=== PATIENT | female | born 1975 | race Two or more races ===

== ENCOUNTER 2020-02-26 21:01 | Emergency (ER) | payer MEDICAID ==
[~2020-02-26] VITALS: Ht 162.6 cm; Wt 73.6 kg
[~2020-02-26 21:01] MED LIST: CLON-529 PO; HCTZ25T PO; NORCO10T PO; VAL5T PO; normal saline 50 ML solution ONE; sod chloride 0.9% 10ml flush syringe IV ONE
[2020-02-26] MEDS ORDERED: iohexol 350MG/ML 100ml bottle IV ONE (21:05)
[2020-02-26] MEDS ORDERED: LIDOcaine 2% 10ml TOPICAL JELLY (Urojet) TP ONE (21:10)
[2020-02-26] MEDS ORDERED: aspirin 300mg supp.rect RC STA (21:30)
[2020-02-26] MEDS ORDERED: labetalol 20mg/4ml (5mg/ml) syringe IV ONE (21:30)
[2020-02-26] MEDS ORDERED: niCARDipine-NS 40mg/200ml IVPB 200 ML IV SCH (21:30)
--- NOTE | 2020-02-26 21:31 | NUR ---
teleneuro consult right now in room
[2020-02-26 21:35] LABS: BASOPHILS % (AUTO) 0.4 % (0-1); EOSINOPHILS # (AUTO) 0.1 X10'3 (0-0.9); EOSINOPHILS % (AUTO) 0.8 % (0-6); HEMATOCRIT 39.9 % (35.0-45.0); HEMOGLOBIN 13.1 g/dl (12.0-16.0); LYMPHOCYTES # (AUTO) 2.1 X10'3 (1.1-4.8); LYMPHOCYTES % (AUTO) 24.2 % (21-51); MEAN CORPUSCULAR HEMOGLOBIN 30.8 PG (27.0-31.0); MEAN CORPUSCULAR HGB CONC 32.8 g/dL (33.0-36.5); MEAN CORPUSCULAR VOLUME 93.9 FL (78-98); MEAN PLATELET VOLUME 8.6 FL (7.4-10.4); MONOCYTES # (AUTO) 0.7 X10'3 (0-0.9); MONOCYTES % (AUTO) 7.4 % (2-12); NEUTROPHILS # (AUTO) 5.9 X10'3 (1.8-7.7); NEUTROPHILS % (AUTO) 67.2 % (42-75); PLATELET COUNT 202 X10'3 (140-440); RED BLOOD COUNT 4.24 X10'6 (4.20-5.60); RED CELL DISTRIBUTION WIDTH 15.5 % (11.5-14.5); WHITE BLOOD COUNT 8.8 X10'3 (4.5-11.0)
--- NOTE | 2020-02-26 21:37 | NUR ---
STROKE RN, GRIFFIN AT BEDSIDE. TELE NEURO JUST COMPLETED WITH DR. KENT AND JANET MOYA. AND TPA TO BE GIVEN AND [facility].
--- NOTE | 2020-02-26 21:39 | NUR ---
TPA 6.6 MG BOLUS JUST ADMINISTERED.
[2020-02-26] MEDS ORDERED: alteplase 100MG inj. 100 ML IV ONE (21:45)
[2020-02-26] MEDS: normal saline 50ml IV soln 50 ML IV SCH ×2 (21:48→22:29)
[2020-02-26 21:50] LABS: ALANINE AMINOTRANSFERASE 19 U/L (12-78); ALBUMIN 2.6 G/DL (3.4-5.0); ALBUMIN/GLOBULIN RATIO 0.7 (1.1-1.5); ALKALINE PHOSPHATASE 105 IU/L (46-116); ANION GAP 6 (8-16); ASPARTATE AMINO TRANSFERASE 29 U/L (10-37); BILIRUBIN,TOTAL 0.3 MG/DL (0.1-1.0); BLOOD UREA NITROGEN 25 MG/DL (7-18); BUN/CREATININE RATIO 25.8 (6.6-38.0); CALCIUM 8.1 MG/DL (8.5-10.1); CHLORIDE 107 MMOL/L (99-107); CREATININE 0.97 MG/DL (0.40-0.90); GLUCOSE 126 MG/DL (70-104); PARTIAL THROMBOPLASTIN TIME 26 SECONDS (22-32); POTASSIUM 3.7 MMOL/L (3.5-5.1); SODIUM 137 MMOL/L (135-145); TOTAL PROTEIN 6.2 G/DL (6.4-8.2); eGFR 62 ML/MIN
--- NOTE | 2020-02-26 21:50 | NUR ---
CONTACT INF: GEETA RENE CELL# [phone]. THIS IS SISTER AND SHE WAS WITH THE PATIENT WHEN SYMPTOMS BEGAN.
[2020-02-26 21:54] LABS: ETHANOL < 0.010 GM/DL (0.0-0.010); TROPONIN I 0.05 NG/ML (0.0-0.05)
--- NOTE | 2020-02-26 22:02 | NUR ---
PT ACCEPTED AND READY TO TRANSFER TO [facility]. DR. TERRY REPORTS THAT TRANSFER CANCELLED BY [facility] TRANSFER [facility] AND NOW HE IS TRYING TO PLACE PT AT [facility]. STROKE RN REMAINS AT BEDSIDE.
[2020-02-26] MEDS ORDERED: LISI-600 PO (22:06)
[2020-02-26] MEDS ORDERED: ASPI-1130 PO (22:07)
[2020-02-26] MEDS ORDERED: CHOL2000 PO (22:07)
--- NOTE | 2020-02-26 22:31 | NUR ---
NO REACCEPTED TO [facility] FOR TRANSFER. CODE 3 UNIT IN TRANSIT NOW FOR TRANSFER. STROKE RN , GRIFFIN , REMAINS AT BEDSIDE. PT CONTIIUES TO BE STABLE. TPA ALMOST INFUSED.
[2020-02-26 22:40] VITALS: BP 161/109
== END 2020-02-26 22:47 | disposition short-term general hospital (02) ==
LOC: ER 21:01
DX: I63.9 Cerebral infarction, unspecified (principal); I66.02 Occlusion and stenosis of left middle cerebral artery; I16.1 Hypertensive emergency; I10 Essential (primary) hypertension; G89.29 Other chronic pain; F41.9 Anxiety disorder, unspecified; F15.90 Other stimulant use, unspecified, uncomplicated; Z90.49 Acquired absence of other specified parts of digestive tract; Z86.69 Personal history of other diseases of the nervous system and sense organs; Z87.59 Personal history of other complications of pregnancy, childbirth and the puerperium; Z90.710 Acquired absence of both cervix and uterus; Z79.2 Long term (current) use of antibiotics; Z79.899 Other long term (current) drug therapy
CPT/HCPCS: 36415; 37195; 70450; 70496; 70498; 71045; 80053; 80320; 84484; 85025; 85610; 85730; 93005; 99291; J2997; Q9967; 99285